=== PATIENT | female | born 1950 | race Caucasian/White ===

== ENCOUNTER → 2017-10-24 | Outpatient (CLI) | payer OTHER, MEDICARE ==
[~2017-10-24] MED LIST: ALEVE220 MG PO; ASPIRIN325 PO; AVAPRO75 MG PO; CYCLOBENZAPRINE5 MG PO; ELIQUIS2.5 MG PO; FLEXERIL PO; FLUCONAZOLE 10100 MG PO; GLUCOPHAGE XR750 MG PO; HYDROCHLOROTHIA25 M1 PO; HYDROCODON-ACE1 EAC7 PO; IBUPROFEN200 MG PO; IRBESARTAN300 MG PO; LIPITOR 20 MG T20 M1 PO; LOPRESSOR25 PO; MEDROLDOSEPACK PO; METAMUCIL1 EAC1 PO; METFORMIN HCL500 MG PO; NORCO 5-325 TA1 EACH PO; NOVOLOG100 UNIT/1 SUBQ; NYSTATIN15 GM TP; OXYCODONE HCL 55 MG PO; PAXIL10 MG PO
== END ==
LOC: M.RAD 09:35
DX: S89.92XA Unspecified injury of left lower leg, initial encounter (principal); M17.12 Unilateral primary osteoarthritis, left knee; G89.29 Other chronic pain; X58.XXXA Exposure to other specified factors, initial encounter; Y93.89 Activity, other specified; Y92.89 Other specified places as the place of occurrence of the external cause; Y99.8 Other external cause status

== ENCOUNTER → 2017-10-27 | Outpatient (CLI) | payer OTHER, MEDICARE | LOC: M.MRI 16:39 | DX: S89.92XA Unspecified injury of left lower leg, initial encounter (principal); M17.12 Unilateral primary osteoarthritis, left knee; G89.29 Other chronic pain; X58.XXXA Exposure to other specified factors, initial encounter; Y93.89 Activity, other specified; Y92.89 Other specified places as the place of occurrence of the external cause; Y99.8 Other external cause status ==

== ENCOUNTER 2017-12-25 08:10 | Inpatient (IN) | payer OTHER, MEDICARE ==
[2017-12-14 09:33] LABS: ABSOLUTE BASOPHILS 0.1 thou/uL (0.0-0.2); ABSOLUTE EOSINOPHILS 0.1 thou/uL (0.0-0.7); ABSOLUTE LYMPHOCYTES 1.4 thou/uL (0.8-5.3); ABSOLUTE MONOCYTES 0.4 thou/uL (0.0-1.2); ABSOLUTE NEUTROPHILS 6.7 thou/uL (1.6-8.1); BASOPHILS 1.2 %; HEMATOCRIT 40.8 % (37.0-47.0); HEMOGLOBIN 13.4 gm/dL (12.0-15.0); LYMPHOCYTES 16.5 %; MCH 29.8 pg (26.0-34.0); MCHC 32.9 g/dL (28.0-37.0); MCV 90.6 fL (80.0-100.0); MONOCYTES 4.6 %; MPV 10.5 fl. (7.2-11.1); NUCLEATED RBCS 0 /100WBC; PLATELET COUNT* 240 thou/uL (150-400); POLYS 76.7 %; RBC 4.51 mil/uL (4.20-5.00); RDW-CV 13.8 % (10.5-14.5); WBC 8.7 thou/uL (4.0-11.0)
[2017-12-14 09:39] LABS: ALBUMIN 3.6 g/dL (3.4-5.0); CALCIUM 9.2 mg/dL (8.5-10.1); CREATININE 0.9 mg/dL (0.6-1.3); POTASSIUM 3.9 mmol/L (3.5-5.1); TOTAL BILIRUBIN 0.5 mg/dL (<0.1-1.0); TOTAL PROTEIN 7.1 g/dL (6.4-8.2)
[2017-12-14 09:42] LABS: PROTIME 9.7 Seconds (9.20-11.50)
[2017-12-14 10:43] LABS: ESR (SEDRATE) 59 mm/hr (0-30)
--- NOTE | 2017-12-14 16:36 | EKG ---
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: : 1950 Requested By: Trevor Pak Order Number: [id number] Reading MD: Sameer Wright Measurements Intervals [place] Rate: 84 P: 25 CO: 166 QRS: -12 QRSD: 87 T: 19 QT: 367 QTc: 434 Interpretive Statements Sinus rhythm Consider left atrial enlargement Low voltage, precordial leads Left ventricular hypertrophy Anterior Q waves, possibly due to LVH Baseline wander in lead(s) V3,V4,V5 No previous ECG available for comparison Electronically Signed On 12-14-2017 16:35:58 CDT by Sameer Wright [email or web address] <ELECTRONICALLY SIGNED> By: Sameer Wright MD, [facility] 12/14/17 1635 7 Sameer Wright MD, [facility] /EPI
[2017-12-15 04:16] LABS: GLYCOHEMOGLOBIN (HGB A1C) 7.5 % (4.8-5.6)
[~2017-12-25] VITALS: Ht 165.1 cm; Wt 107.0 kg
[~2017-12-25 08:10] MED LIST changes: -ASPIRIN325 PO; -ELIQUIS2.5 MG PO; -METAMUCIL1 EAC1 PO; -NOVOLOG100 UNIT/1 SUBQ; -OXYCODONE HCL 55 MG PO
[2017-12-25 09:24] VITALS: BP 143/84
[2017-12-25 13:15] VITALS: BP 137/74
[2017-12-25 14:17] VITALS: BP 137/74
--- NOTE | 2017-12-25 14:44 | NUR ---
PT ARRIVED TO THE UNIT AT 1315. PT ORIENTED TO ROOM AND SERVICES. FOOD AND DRINK OFFERED. EXPECTATIONS EXPLAINED. PT AND DAUGHTER VERBALIZED UNDERSTANDING OF ADMISSION INSTRUCTIONS. PT C/O LEFT KNEE PAIN THAT HAS BEEN EFFECTIVELY CONTROLLED WITH A COMBINATION OF PO AND IV PAIN MEDS. VSS ON 2L VIA NC AND CAPNO MONITOR IN PLACE. PT CURRENTLY RESTING IN BED WITH EYES CLOSED, BREATHING EVEN AND UNLABORED AT A NORMAL RATE AND DEPTH.
[2017-12-25 20:30] VITALS: BP 122/63
[2017-12-26 00:16] VITALS: BP 125/69
[2017-12-26 04:02] VITALS: BP 115/68
[2017-12-26 04:14] LABS: HEMATOCRIT 32.8 % (37.0-47.0); HEMOGLOBIN 10.9 gm/dL (12.0-15.0)
--- NOTE | 2017-12-26 05:54 | NUR ---
PATIENT HAS SLEPT OFF AND ON DURING THE NIGHT. PAIN CONTROLLED WITH ORAL PAIN MEDICATION AND CHARTED. VSS ON 2L 02 VIA NASAL CANNULA AND CAPNO IN PLACE. DRESSING TO LEFT KNEE IS C/D/I, PATIENCE HOSE AND SCD'S IN PLACE. IV IN LEFT HAND-SL. PATIENT INSTRUCTED TO USE CALL LIGHT WHEN NEEDING ASSISTANCE. HOURLY ROUNDS MADE. WILL CONTINUE WITH PLAN OF CARE AND NURSING TO MONITOR.
[2017-12-26 08:07] VITALS: BP 108/41
--- NOTE | 2017-12-26 09:08 | NUR ---
RECIEVED O.T. EVAL AND TX ORDER. WILL DEFER TO P.T. AND NURSING AT THIS TIME. PLEASE ORDER FURTHER O.T. SERVICES IF NEEDED.
--- NOTE | 2017-12-26 15:00 | NUR ---
PT.SLEEPING. DAUGHTER,ENRIQUE,AT BEDSIDE. SHE SAID HER MOM JUST RECEIVED SOME MORIPHINE IV, SHE WAS HURTING SO BAD. PT.LIVES ALONE. DAUGHTER PLAINNING ON STATYING SEVERAL NIGHTS WITH HER. DAUGHTER SAID SH EIS GOING TO CALL HER BROTHER TO STAY DURING THE DAYTIME FOR A FEW DAYS. PT.HAS A WALKER AT HOME.WOULD LIKE TO HAVE HOME HEALTH FIRST. SHE WOULD LIKE [facility]. CM WILL CONTACT [facility] AND MAKE REFERRAL. SHE IS NORMALLY INDEPENDENT. 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 CM WILL FOLLOW.
[2017-12-26 16:16] VITALS: BP 95/40
[2017-12-26 17:23] VITALS: BP 95/40
--- NOTE | 2017-12-26 18:56 | NUR ---
ATTEMPTS TO MANAGE PT PAIN WITH ALTERNATING PAIN MEDS. PT REPORTS SIGNIFICANT PAIN. PT KNEE REPOSITIONED MANY TIMES AND PT ENCOURAGED TO KEEP KNEE STRAIGHT AND NOT TURNED OUT OR TWISTED IN BED. PT ALSO ENCOURAGED TO SIT IN CHAIR AND PT REFUSED. ICE TO KNEE. PT UP WITH MIN ASSIST WITH GAIT BELT AND WALKER. PT ABLE TO MAKE NEEDS KNOWN, CALL LIGHT IN REACH
[2017-12-26 20:50] VITALS: BP 121/56
[2017-12-27 00:59] VITALS: BP 91/34
[2017-12-27 04:36] LABS: HEMATOCRIT 28.7 % (37.0-47.0); HEMOGLOBIN 9.7 gm/dL (12.0-15.0)
[2017-12-27 04:39] VITALS: BP 120/70
--- NOTE | 2017-12-27 05:07 | NUR ---
PATIENT REMAINS ALERT AND ORIENTED THROUGHOUT SHIFT. VITAL SIGNS STABLE ON ROOM AIR. IV PATENT AND SALINE LOCKED IN THE LEFT FOREARM. TRANSFERRING WITH ASSIST X2 TO THE BEDSIDE COMMODE. ICE PACKS IN PLACE FOR PAIN. PAIN MANAGED WITH PO MEDICATION PER ORDERS. DENIES NAUSEA. REPOSITIONING SELF WITH ASSIST AT TIMES. HOURLY ROUNDING COMPLETE. FALL PRECAUTIONS IN PLACE. CALL LIGHT WITHIN REACH. NURSING WILL CONTINUE TO MONITOR.
[2017-12-27 09:26] VITALS: BP 115/67
--- NOTE | 2017-12-27 16:41 | NUR ---
P.T.RECOMMENDED NO DISCHARGE FOR PT. TODAY DUE TO POOR PAIN CONTROL AND MININAL AMBULATION DUE TO PAIN AND FATIGUE. [place]EN SNOW CM CHECK SNF BENEFITS FOR PT. ONLY SKILLED FACILITY IS [facility] IN [place], [place]. THIS IS A TIER ONE FACILITY. ANY OTHER SNF WOULD BE UNDER THE [facility] NETWORK AND ONLY COVERED AT 65%. WILL DISCUSS WITH PT.IN AM. NOTIFIED .
--- NOTE | 2017-12-27 17:42 | NUR ---
ASSUMED CARE PATIENT AFTER MORNING REPORT. ALERT AND ORIENTED X4. ASSESSMENT COMPLETED AND CHARTED. VSS ON ROOM AIR. PATIENT HAS HAD NO COMPLAINTS OF SOA THIS SHIFT. PATIENTS NAUSEA AND PAIN HAVE BEEN MANAGED WITH MEDICATION AND ICE APPLICATION CHIEF COMPLAINTS ARE OF KNEE AND HIP PAIN. MANY ATTEMPTS HAVE BEEN MADE TO REPOSITION OR USE WEDGES AND PILLOWS TO MAKE PATIENT MORE COMFORTABLE BUT PATIENT REFUSES THESE TECHNIQUES. PATIENT SPENT MOST OF THE DAY IN THE CHAIR AND WORKED WITH THERAPY THIS AFTERNOON. WILL NEED SKILLED PLACEMENT BEFORE DISCHARGE. HOURLY ROUNDS MAINTAINED, CALL LIGHT IS WITHIN REACH, NURSING WILL CONTINUE TO MONITOR.
[2017-12-27 21:00] VITALS: BP 107/46
[2017-12-27 23:51] VITALS: BP 95/46
[2017-12-28 04:00] VITALS: BP 100/49
--- NOTE | 2017-12-28 05:11 | NUR ---
PATIENT REMAINS ALERT AND ORIENTED X4 THROUGHOUT SHIFT WITH PERIODS OF CONFUSION. VITAL SIGNS STABLE ON ROOM AIR. IV PATENT IN THE LEFT FOREARM SALINE LOCKED. REPOSITIONING SELF IN BED. ICE PACKS IN PLACE TO HELP WITH PAIN. REPOSITIONING SELF IN BED AND CALLING FOR ASSISTANCE WHEN NEEDING HELP. PAIN MANAGED WTIH PO PAIN MEDICATION PER ORDERS. DENIES NAUSEA. FALL PRECAUTIONS IN PLACE. BED ALARM IN PLACE. CALL LIGHT WITHIN REACH. NURSING WILL CONTINUE TO MONITOR.
[2017-12-28 08:04] VITALS: BP 97/50
[2017-12-28 08:05] VITALS: BP 97/50
--- NOTE | 2017-12-28 14:00 | NUR ---
SPOKE WITH PT.ABOUT DISCHARGE PLANNING. SHE WAS HOLDING HER HEAD IN HER HANDS. SHE SAID SHE WAS HAVING ALOT OF BACK AND BUTTOCK PAIN. SHE FELL ABOUT A YEAR AGO AND HAS HAD PAIN EVER SINCE. SHE SAID IT IS WORSE SINCE SURGERY. EXPLAINED ONLY SNF SHE HAS 100% COVERAGE AT FOR HER INSURANCE. IS [facility]. SHE SAID I'LL GO WHEREVER YOU HAVE TO SEND ME. EXPLAINED I WOULD NEED TO MAKE REFERRAL AND THEN THEY WOULD NEED TO GET INSURANCE AUTHORIZATION. UNABLE TO SPEAK WITH ADMSSIONS AT [facility] BUT FAXED REFERRAL.
--- NOTE | 2017-12-28 16:45 | NUR ---
SW received call from [facility] requesting SW to call number on back of insurance card and choose option 3. SW called and manufacturer's service representative said that facility calls for authorization and faxes referral to fax number provided and SW called [facility] back and explained information for referral and they said that they were told CM was to call to make sure all benefits for pt. LEONOR explained again that insurance told SW that facility attains auth just as in any other referral process. Admissions at [facility] said that they would accept pt tomorrow but still needed to confirm and web operations administrator will call SW back in the morning. SW to continue to follow. LEONOR discussed with pt that pt will most likely dc to [facility] tomorrow. Pt understanding and okay with plan.
[2017-12-28 19:45] VITALS: BP 101/53
--- NOTE | 2017-12-28 19:51 | NUR ---
ASSUMED CARES OF PT AT 0700. PT IN BEDSIDE RECLINER CHAIR WITH CHAIR ALARM IN PLACE AND ACTIVE. CALL BUTTON AND PERSONAL ITEMS IN PT REACH. PT A&O X4, LUNGS CLEAR TO DIMINISHED PER AUSCULTATION. HR OFTEN TACHYCARDIC 100-102. BLOOD PRESSURES SOFT 97/50, 95/53, ASYMPTOMATIC. AFEBRILE, PERRLA, LEFT KNEE SURGICAL SITE DRESSING C/D/I. PT REFUSING MANY CARES (PT, OT, MEDS, BATH). DOES NOT WANT TO GO BACK TO BED BUT C/O PAIN IN BUTTOCKS, WAFFLE CUSHION AND HEATING PAD ORDERED. PT UP 1-2 ASSIST WALKER/GB. PT REFUSES SCD'S THIS SHIFT. LEFT FA IV PATENT TO FLUSH, SALINE LOCKED, NO S/S OF INFECTION. HOURLY ROUNDING AND ACCU CHECKS COMPLETED THIS SHIFT. PT POST OP DAY 3, DECEMBER D/C TOMORROW TO REHAB/SNF. ENCOURAGED AND EDUCATED TO USE INCENTIVE SPIROMETER EVERY COMMERCIAL OR AT LEAST 10X PER HOUR, PT STATES SHE CAN NOT DO THAT MUCH, TOO PAINFUL. PT OFTEN ANXIOUS. PT STATES SHE IS SOA WHEN PHYSICAL THERAPY COMES TO WORK WITH HER, BUT O2 STATS ARE WNL AND LUNG SOUNDS CLEAR TO DIMINISHED, COLOR APPROPRIATE TO RACE, CAP REFILL <3 SEC. PT REFUSING PAIN MEDS AND PAIN PATCH, PT STATES THEY DON'T WORK AND MAKE HER FEEL BAD. HOURLY ROUNDING AND ACCU CHECKS COMPLETED THIS SHIFT.
[2017-12-28] MEDS ORDERED: ELIQUIS2.5 MG PO (20:56)
[2017-12-28] MEDS ORDERED: OXYCODONE HCL 55 MG PO (21:02)
[2017-12-28] MEDS ORDERED: METAMUCIL1 EAC1 PO (21:06)
[2017-12-28 21:07] VITALS: BP 95/40
[2017-12-28 21:10] VITALS: BP 95/40
[2017-12-29 00:05] VITALS: BP 111/46
[2017-12-29 03:26] VITALS: BP 103/51
--- NOTE | 2017-12-29 03:51 | NUR ---
ASSUMED CARE OF PT AT 1900. PT IS ALERT AND ORIENTED. VSS. PERRLA. PT REPORTS SEVERE PAIN IN HER LEFT KNEE. PT REFUSES ANY PAIN MEDS. PT ALSO HAS NOT HAD A BOWEL MOVEMENT IN MULTIPLE DAYS. PT REFUSES MG CITRATE. PT IS UP SITTING IN HER CHAIR AT THIS TIME. GAIT IS VERY UNSTEADY.
[2017-12-29 07:50] VITALS: BP 105/84
[2017-12-29 14:26] LABS: HEMATOCRIT 28.1 % (37.0-47.0); HEMOGLOBIN 9.5 gm/dL (12.0-15.0); MCH 30.7 pg (26.0-34.0); MCHC 33.7 g/dL (28.0-37.0); MCV 91.1 fL (80.0-100.0); MPV 9.7 fl. (7.2-11.1); RBC 3.08 mil/uL (4.20-5.00); RDW-CV 13.9 % (10.5-14.5); WBC 10.7 thou/uL (4.0-11.0)
[2017-12-29 14:40] LABS: CALCIUM 8.1 mg/dL (8.5-10.1); CREATININE 2.4 mg/dL (0.6-1.3); POTASSIUM 4.6 mmol/L (3.5-5.1)
--- NOTE | 2017-12-29 16:55 | NUR ---
LEONOR followed up with pt dc planning for possible SNF for today. An order to dc to SNF was needed but not completed due to Dr Roger concern for pt constipation and pt to have a BM prior to approval for dc. LEONOR called and spoke with admissions at [facility] [phone] (Damaris and Yesenia) who said that they could accept pt tomorrow but that they do not have transportation. LEONOR spoke with pt dtr [phone] and she said that she could provide pt ride and works until 1 pm so she would be at the hospital shortly after 1 pm. Pt dtr asked about possibility of [facility], LEONOR spoke with Yarely in admissions who stated that at the very least, pt would be responsible for $333 per day and that she wouldn't be able to receive auth over the weekend. If medically cleared to dc, [facility] needs final orders and med list faxed to fax [phone] and nurse report called to [phone].
--- NOTE | 2017-12-29 19:05 | NUR ---
PT HAD ONE DOSE OF PAIN MEDICATIONS THIS SHIFT AFTER A LOT OF RELUCTANCE. PT DID NOT WANT TO TAKE PAIN MEDICATION DUE TO THE CONSTIPATING EFFECTS OF NARCOTICS. PT GIVEN A SUPPOSITORY THIS SHIFT WITH NO SUCCESS OF BM. PT LLE IS RED, SWOLLEN, AND WARM THIS SHIFT AND PATIENCE DEJESUS WERE TAKEN OFF BY OT EARLIER IN THE SHIFT. DR FRANCOIS NOTIFIED AND HE GAVE A TELEPHONE ORDER FOR VENOUS DOPPLER WHICH HE LATER CONFIRMED HE WANTED EVEN THOUGH SHE HAD THIS DONE MONDAY BUT WAS NEGATIVE. PT DAUGHTER STATED THAT HER LEFT ANKLE DOES LOOK MUCH MORE RED AND SWOLLEN THAN YESTERDAY. CALLED [facility] REGARDING THE VENOUS DOPPLER AND THEY WERE TOLD THE PT NEEDS TO HAVE THE DOPPLER TONIGHT AND NOT FOR TOMORROW IN THE AM. WILL PASS OFF TO NOC SHIFT
[2017-12-29 20:00] VITALS: BP 114/59
[2017-12-30 00:30] VITALS: BP 117/43
[2017-12-30 03:53] LABS: HEMATOCRIT 25.7 % (37.0-47.0); HEMOGLOBIN 8.7 gm/dL (12.0-15.0); MCH 30.3 pg (26.0-34.0); MCHC 33.7 g/dL (28.0-37.0); MCV 89.8 fL (80.0-100.0); MPV 9.9 fl. (7.2-11.1); RBC 2.86 mil/uL (4.20-5.00); RDW-CV 13.7 % (10.5-14.5); WBC 7.5 thou/uL (4.0-11.0)
[2017-12-30 04:05] LABS: CALCIUM 7.7 mg/dL (8.5-10.1); CREATININE 1.9 mg/dL (0.6-1.3); POTASSIUM 4.1 mmol/L (3.5-5.1)
[2017-12-30 04:56] VITALS: BP 100/43
--- NOTE | 2017-12-30 05:37 | NUR ---
ASSUMED PT CARE AT 1930, PT IS A&OX4, PT C/O PAIN THROUGHOUT THE SHIFT. PRN PAIN MEDICATIONS GIVEN PER OCT. PT HAD A SMALL BM THIS SHIFT. PT IS UP TO THE BSC WITH ONE. PT HAS A LARGE BRUISE TO HER LEFT LEG. PT HAS DRESSING TO LEFT KNEE CLEAN DRY AND INTACT. BED IN LOW POSITION, CALL LIGHT IN REACH, BED ALARM ON, YELLOW ARM BAND AND SOCKS IN PLACE. HOURLY ROUNDING COMPLETED FOR PT SAFETY.
[2017-12-30 08:00] VITALS: BP 120/71
--- NOTE | 2017-12-30 10:27 | NUR ---
Discussed disposition with Pt, Pt informed that she did have BM last evening. Pt should be ready to dc today, waiting for Dr to arrive and write dc orders. Pt to dc to [facility] p:[phone], f:[phone], dc orders will need to be faxed once available. Chart will need to be copied. Dtr to transport.
[2017-12-30 16:00] VITALS: BP 92/39
[2017-12-30 21:10] VITALS: BP 123/48
--- NOTE | 2017-12-30 21:15 | NUR ---
I ASSUMED CARE OF THE PATIENT AT 0700. SHE IS ALERT AND ORIENTED X4 WITH A FLAT AFFECT. BED IS IN THE LOW LOCKED POSITION AND CALL LIGHT IS IN REACH. BED/CHAIR ALARM IN USE. HOURLY ROUNDING WAS COMPLETED AND PATIENT NEEDS ARE MET. PAIN IS MANAGED WITH PRN PAIN MEDS. SHE WAS UP TO THE CHAIR AND PARTICIPATED IN THERAPY TODAY. IV WENT BAD AND I WAS UNABLE TO RESTART A LINE. NIGHT NURSE WILL ATTEMPT BEFORE CALLING A ENGRAVER LETTER. BLOOD SUGAR WAS MAINTAINED. SHE HAD 2 LARGE BOWEL MOVEMENTS TODAY. WILL CONTINUE TO MONITOR.
[2017-12-31 03:30] VITALS: BP 118/44
[2017-12-31 04:11] LABS: HEMATOCRIT 24.9 % (37.0-47.0); HEMOGLOBIN 8.2 gm/dL (12.0-15.0); MCH 30.1 pg (26.0-34.0); MCV 91.1 fL (80.0-100.0); MPV 9.6 fl. (7.2-11.1); RBC 2.73 mil/uL (4.20-5.00); RDW-CV 13.6 % (10.5-14.5); WBC 5.6 thou/uL (4.0-11.0)
[2017-12-31 04:26] LABS: URINE BILIRUBIN NEGATIVE (Negative); URINE BLOOD NEGATIVE (Negative); URINE CLARITY CLEAR; URINE COLOR YELLOW; URINE GLUCOSE-RANDOM NEGATIVE (Negative); URINE KETONES NEGATIVE (Negative); URINE LEUKOCYTES-REFLEX NEGATIVE (Negative); URINE NITRITE-REFLEX NEGATIVE (Negative); URINE PROTEIN NEGATIVE (Negative); URINE SPECIFIC GRAVITY <= 1.005 (1.005-1.030); URINE UROBILINOGEN 0.2 E.U./dl (0.2-1.0)
[2017-12-31 04:33] LABS: CREATININE 1.2 mg/dL (0.6-1.3); MAGNESIUM 2.5 mg/dL (1.8-2.4)
--- NOTE | 2017-12-31 04:44 | NUR ---
PATIENT HAS REMAINED ALERT AND ORIENTED X 4 THROUGHOUT THE SHIFT, FUSSY AND AT TIMES TEARFUL. RESTING AT INTERVALS ON HOURLY ROUNDS. UP TO BSC WITH ASSIST OF ONE. CUEING FOR SAFE TECHNIQUE. DRESSING LEFT KNEE CLEAN AND DRY. LLE REMAINS BRUISED AND SWOLLEN. ATTEMPTED TO PROVIDE SCD'S TONIGHT. PATIENT DID ALLOW THIS NURSE TO APPLY THEM, BUT, TOOK THEM OFF WITHIN 2 HOURS OF BEDTIME. LEFT HIP FROM [place] REPORTEDLY MORE PAIN TONIGHT THAN KNEE. MEDICATED X 3 FOR PAIN. VITAL SIGNS STABLE. URINE FOR UA TO LAB. NPO AT 0200 FOR PENDING RENAL ULTRASOUND. CONTINUE TO MONITOR.
[2017-12-31 08:23] VITALS: BP 122/64
[2017-12-31] MEDS ORDERED: NOVOLOG100 UNIT/1 SUBQ (15:57)
[2017-12-31 15:58] VITALS: BP 95/40
[2017-12-31] MEDS ORDERED: ASPIRIN325 PO (16:05)
--- NOTE | 2017-12-31 16:30 | NUR ---
THIS NURSE HAS BEEN IN CONTACT WITH PATIENTS DAUGHTER ENRIQUE REGARDING DISCHARGE TO [facility]. [facility] STATES SHE WILL TRANSPORT PATIENT AT 1700 AFTER WORK VIA PRIVATE VEHICLE. CALLED [facility] TO INFORM THEM OF DC ORDERS. FAXED ORDERS TO NUMBER PROVIDED. PATIENT THEN HAD ADDITIONAL FAMILY MEMBERS VISIT THIS AFTERNOON WHO WITHOUT EVEN SPEAKING WITH NURSE FIRST BECAME IRRATE AT NURSES STATION REGARDING PATIENT BEING TRANSPORTED VIA PRIVATE VEHICLE. INFORMED FAMILY MEMBER THAT I HAD SPOKE WITH ENRIQUE (PATIENTS DAUGHTER) 3 TIMES TODAY REGARDING PLAN, AND IF THE PLAN HAD CHANGED SINCE I LAST SPOKE TO HER I WAS NOT AWARE. THE PATIENT ALSO TOLD THE FAMILY THAT SHE HAD NOT BEEN OUT OF BED, HAD ANY FOOD, OR BEEN TO THE BATHROOM THIS SHIFT. POLITELY INFORMED THE FAMILY THAT SIMILAR ACCUSATIONS HAD BEEN MADE OVER THE PAST FEW DAYS, AND THAT I HAD CLARIFIED WITH [facility] THAT THESE WERE NOT TRUE, AND [facility] STATED SHE HAD BEEN HERE WITH PATIENT AND WITNESSED THE BEHAVIOR. INFORMED THE FAMILY THAT THE PATIENT HAD BEEN TAKEN CARE OF TODAY, BUT REFUSED 2/3 MEALS, AND ORIGINALLY TRIED TO REFUSE THERAPY BUT WITH MUCH ENCOURAGEMENT PATIENT PARTICIPATED WITH THERAPY. PATIENT ALSO HAD JUST YELLED AT NURSES STATING SHE DID NOT WANT HER FEET ELEVATED THAT IT WAS UNCOMFORTABLE AND SO NURSING ADJUSTED HER LEGS FOR COMFORT, AND THEN THE PATIENT TOLD HER FAMILY WE REFUSED TO ELEVATE HER LEGS. FAMILY APOLOGIZED STATING THEY DID NOT KNOW SHE WAS BEHAVING THIS WAY. DAUGHTER (ENRIQUE) GOT OFF WORK EARLY TO ASSIST WITH PATIENT.
--- NOTE | 2017-12-31 17:00 | NUR ---
FAMILY REQUESTING TRANSPORT BE CHANGED TO [facility]. CALLED [facility] AND THEY WILL PICK PATIENT UP BETWEEN 1830 AND 1900. VERIFIED THIS WAS OK WITH NURSING KITCHEN AND BATH DESIGNER DUE TO COST. FAMILY AWARE OF TRANSPORTATION PLANS. IV REMOVED. REPORT CALLED. CHART COPIED.
--- NOTE | 2017-12-31 18:43 | NUR ---
PATIENT TANSFERRED TO [facility] AT THIS TIME. IV REMOVED. REPORT CALLED TO [facility]. COPY OF CHART SENT. TRANSPORTED [facility]IA [facility].
--- NOTE | 2018-01-17 06:50 | OP ---
[address] [address] OPERATIVE REPORT Name: ALEX DIAL Room: [address]#: [id number] Admission: 12/25/17 Attend Phys: Marleny Raines Discharge: 12/31/17 Date of : 50 Report #: [id number] THIS REPORT FOR: //name// CC: Trevor Chapin DICTATED BY: Aric Caicedo DO DATE OF SERVICE: 12/25/2017 PREOPERATIVE DIAGNOSIS: Left knee degenerative joint disease. POSTOPERATIVE DIAGNOSIS: Left knee degenerative joint disease. SURGERY: Left total knee arthroplasty utilizing Biomet Vanguard total knee size 71 tibial bearing, a size 65 CR left femur, size 12 anterior stabilized tibial polyethylene and Palacos bone cement. PREOPERATIVE ANTIBIOTICS: 2 grams Ancef. ESTIMATED BLOOD LOSS: 150 mL. ANESTHESIA: General with adductor canal block. COMPLICATIONS: None. SPECIMENS: None. CONDITION: The patient is stable to PACU. INDICATIONS FOR PROCEDURE: This 67-year-old female has been dealing with left knee degenerative joint disease, has failed with conservative treatment, has had significant degenerative changes and loss of range of motion. DESCRIPTION OF PROCEDURE: Once a written and verbal consent was obtained, the patient was taken from the preoperative holding area to the operating suite, given the benefit of general anesthesia and the left lower extremity was prepared for surgery with well-padded tourniquet sterilely prepped and draped in legal office administrator manner. Timeout was performed to verify the correct operative site, location and procedure. A standard midline incision was made and a medial parapatellar arthrotomy was performed. The knee was then flexed with the patella everted. The medial and lateral menisci were removed and our bone cuts were made initially, started by taking an extra 2 mm off the distal femur as well as an extra 2 mm on the tibial cut. The patient was found to be tight medially and a slight medial release was performed. Next, [place] [address] OPERATIVE REPORT Name: ALEX DIAL Room: [address] IN [facility].#: [id number] Admission: 12/25/17 Attend Phys: Marleny Raines Discharge: 12/31/17 Date of : 50 Report #: [id number] sized using the sizing guide to a size 65. Our distal femur was cut using the 4 in 1 captured block as well as the posterior osteophytes were removed. Next, tibia was cut and measured to be a size 71. All osteophytes were removed and soft tissue was removed inside the capsule. Menisci were completely removed. The knee was thoroughly irrigated. Trial components were placed and were found to have good alignment and balance, and the patella was found to be in good smooth surface and it was decided to not resurface the patella. Trial components were removed. A tibial base plate was reamed and trial fins were impacted. Knee was thoroughly irrigated. Final components were cemented in place using one unit of Palacos cement. Final components were impacted in place. Size 12 polyethylene bearing was found to be appropriately balanced and cement was allowed to harden. Vancomycin powder was placed intracapsular and subcutaneously. The capsule was closed using #2 Stratafix as well as #1 Vicryl in simple interrupted fashion. Skin was closed using a 2-0 Monocryl in simple interrupted fashion as well as a running Stratafix and surgical glue. The patient was awakened and taken to PACU in stable condition. <ELECTRONICALLY SIGNED> By: Renny Fraser DO 01/17/18 0650 1219 [id number] Pak DO /meggan
== END 2017-12-31 18:45 | DRG 470 ==
LOC: M.PRE 08:10 → M.ORTHSURG 08:40 → M.TBA 08:40 → M.PRE 09:53 → M.ORTHSURG 13:13
PROVIDERS: Family Medicine; Orthopaedic Surgery; ADMIT Internal Medicine
PROC: 0SRD0J9 Replacement of Left Knee Joint with Synthetic Substitute, Cemented, Open Approach (ICD-10-PCS; principal; 2017-12-25)
DX: M17.12 Unilateral primary osteoarthritis, left knee (principal); D62 Acute posthemorrhagic anemia; M79.7 Fibromyalgia; G89.18 Other acute postprocedural pain; K59.00 Constipation, unspecified; E11.22 Type 2 diabetes mellitus with diabetic chronic kidney disease; I12.9 Hypertensive chronic kidney disease with stage 1 through stage 4 chronic kidney disease, or unspecified chronic kidney disease; N18.3 Chronic kidney disease, stage 3 (moderate); E66.9 Obesity, unspecified; E78.5 Hyperlipidemia, unspecified; Z79.84 Long term (current) use of oral hypoglycemic drugs; Z79.899 Other long term (current) drug therapy; Z68.39 Body mass index [BMI] 39.0-39.9, adult; Z90.49 Acquired absence of other specified parts of digestive tract; Z90.710 Acquired absence of both cervix and uterus; Z88.2 Allergy status to sulfonamides; Z88.8 Allergy status to other drugs, medicaments and biological substances

== ENCOUNTER → 2018-04-20 | Outpatient (CLI) | payer OTHER, MEDICARE ==
[~2018-04-20] MED LIST changes: +ASPIRIN325 PO; +ELIQUIS2.5 MG PO; +METAMUCIL1 EAC1 PO; +NOVOLOG100 UNIT/1 SUBQ; +OXYCODONE HCL 55 MG PO
[2018-04-20 09:02] LABS: ABSOLUTE EOSINOPHILS 0.2 thou/uL (0.0-0.7); ABSOLUTE MONOCYTES 0.3 thou/uL (0.0-1.2); ABSOLUTE NEUTROPHILS 4.2 thou/uL (1.6-8.1); BASOPHILS 0.8 %; EOSINOPHILS 2.8 %; HEMOGLOBIN 12.8 gm/dL (12.0-15.0); LYMPHOCYTES 17.4 %; MCH 28.4 pg (26.0-34.0); MCHC 32.9 g/dL (28.0-37.0); MCV 86.4 fL (80.0-100.0); MONOCYTES 5.6 %; MPV 10.3 fl. (7.2-11.1); NUCLEATED RBCS 0 /100WBC; PLATELET COUNT* 232 thou/uL (150-400); POLYS 73.4 %; RBC 4.51 mil/uL (4.20-5.00); WBC 5.7 thou/uL (4.0-11.0)
[2018-04-20 09:20] LABS: ALBUMIN 3.6 g/dL (3.4-5.0); ALKALINE PHOSPHATASE 121 U/L (46-116); ANION GAP 8 mmol/L (7-16); BUN 12 mg/dL (7-18); CHLORIDE 101 mmol/L (98-107); CHOLESTEROL 199 mg/dL (<200); CO2 28 mmol/L (21-32); CREATININE 0.8 mg/dL (0.6-1.3); GLUCOSE 156 mg/dL (70-99); HDL CHOLESTEROL 40 mg/dL (>40); LDL CHOLESTEROL 127 mg/dL (<100); POTASSIUM 3.9 mmol/L (3.5-5.1); SGOT 24 U/L (15-37); SGPT 33 U/L (30-65); SODIUM 137 mmol/L (136-145); TOTAL BILIRUBIN 0.3 mg/dL (<0.1-1.0); TOTAL PROTEIN 7.1 g/dL (6.4-8.2); TRIGLYCERIDE 162 mg/dL (<150); VLDL 32 mg/dL (<40)
[2018-04-20 09:21] LABS: SERUM ASSESSMENT Clear
[2018-04-21 02:07] LABS: GLYCOHEMOGLOBIN (HGB A1C) 7.2 % (4.8-5.6)
== END ==
LOC: M.LAB 08:41
PROVIDERS: Family Medicine
DX: E11.9 Type 2 diabetes mellitus without complications (principal); I10 Essential (primary) hypertension; E78.2 Mixed hyperlipidemia; B37.9 Candidiasis, unspecified; L30.9 Dermatitis, unspecified

== ENCOUNTER → 2019-01-25 | Outpatient (CLI) | payer OTHER, MEDICARE | LOC: M.ULTRA 07:47 | DX: R22.2 Localized swelling, mass and lump, trunk (principal) ==

== ENCOUNTER → 2019-03-07 | Day surgery (SDC) | payer OTHER, MEDICARE ==
[~2019-03-07] MED LIST changes: +ASPIR 8181 MG PO; +COZAAR 25 MG TA25 M1 PO; +LIPITOR10 MG PO; +TYLENOL325 MG PO
--- NOTE | ~2019-03-07 | OP ---
[facility] [address] [place] [address] OPERATIVE REPORT Name: AMOR DIALTREVA ROWE Room: [facility]#: [id number] Admission: 03/07/19 Attend Phys: Jeison Garcia Discharge: Date of : 50 Report #: [id number] THIS REPORT FOR: //name// CC: Jeison Colmenares DATE OF SERVICE: 03/07/2019 PREOPERATIVE DIAGNOSIS: Right upper back lipoma, 10 x 9 cm. POSTOPERATIVE DIAGNOSIS: Right upper back lipoma, 10 x 9 cm. PROCEDURE: Excision of 10 x 9 cm right upper back lipoma. SURGEON: Jeison Garcia MD ANESTHESIA: General. ESTIMATED BLOOD LOSS: Minimal. SPECIMENS: Right upper back lipoma. DESCRIPTION OF PROCEDURE: After informed consent was obtained, the patient was brought to the operating room and placed supine. SCDs were placed and working, preoperative antibiotics were administered, general anesthesia was induced. The patient was placed in the left lateral decubitus position with all bony prominences protected with cushions and an axillary roll. The area was then prepped and draped in the usual sterile fashion. A 10 cm incision was made over the lipoma. Cautery dissection was made down through the subcutaneous tissue. This was well encapsulated. The mass was then fully excised. Skin was closed with 4-0 Monocryl in running subcuticular fashion. Incision was dressed with Steri-Strips and sterile gauze. Sterile dressings were applied. COMPLICATIONS: None. DISPOSITION: The patient was taken to recovery in satisfactory condition. By: 0821 [id number] Garcia MD /nt
[2019-03-07 06:50] LABS: HEMATOCRIT 38.7 % (37.0-47.0); HEMOGLOBIN 12.9 gm/dL (12.0-15.0); MCH 29.5 pg (26.0-34.0); MCHC 33.3 g/dL (28.0-37.0); MCV 88.6 fL (80.0-100.0); MPV 10.4 fl. (7.2-11.1); RBC 4.36 mil/uL (4.20-5.00); WBC 5.9 thou/uL (4.0-11.0)
[2019-03-07 06:53] LABS: CALCIUM 9.5 mg/dL (8.5-10.1)
--- NOTE | 2019-03-07 16:30 | EKG ---
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 : 1950 Requested By: Jeison Garcia Order Number: [id number] Reading MD: Galdino Schmitt Measurements Intervals [place] Rate: 73 P: 27 [place]: 168 QRS: -16 QRSD: 94 T: 3 QT: 393 QTc: 433 Interpretive Statements Sinus rhythm Low voltage, precordial leads Left ventricular hypertrophy, by ivoltage Compared to ECG 12/14/2017 09:28:45 Q waves no longer present Electronically Signed On 03-07-2019 16:30:16 CDT by Galdino Schmitt [email or web address] <ELECTRONICALLY SIGNED> By: Galdino Schmitt MD, [facility] 03/07/19 1630 0631 0631 Galdino Schmitt MD, [facility] /EPI
--- NOTE | 2019-03-08 18:06 | PATH ---
[facility] [address] [place] [address] PATHOLOGY RPT PROCEDURE Name: RADHA DIAL Room: [facility].#: [id number] Admission: 03/07/19 Date of : 50 Discharge: Report #: [id number] Path Case #: [id number] [facility] Accession Number: [id number] . 01 Material submitted: . back - RIGHT UPPER BACK LIPOMA. Modifiers: right, upper . 01 Clinical history: . Lipoma of right upper back. . 02 Diagnosis: Right upper back lipoma: - Lipoma. (DAMARI:jacek; 03/08/2019) MBR/03/08/2019 . 02 Electronically signed: . Benjamin Cevallos MD, Pathologist NPI- [id number] . 01 Gross description: . Received in formalin labeled "Luis, Radha, right upper back lipoma" is an encapsulated yellow-lópez lobulated soft tissue mass measuring 10.0 x 10.0 x 3.5 cm. The external surface is inked black. The specimen is sectioned to reveal a yellow-lópez homogenous cut surface without hemorrhage or necrosis. Cloth Shader sections are submitted in A1-A5, with two sections in each cassette. ([facility]; 03/07/2019) SYC/SYC . 02 Pathologist provided ICD-10: D17.1 . 02 CPT . 256434 Specimen Comment: A courtesy copy of this report has been sent to Specimen Comment: [phone], . Specimen Comment: Report sent to / DR FRYE Performed at: [address], [place] [id number] MD Thee Weiss MD Phone: [phone] Performed at: 02 [facility] [address], [place], [place] [id number] MD Benjamin Cevallos MD Phone: [phone]
== END | disposition home or self-care (01) ==
LOC: M.SUR 06:08
PROVIDERS: Surgery
DX: D17.1 Benign lipomatous neoplasm of skin and subcutaneous tissue of trunk (principal); M17.12 Unilateral primary osteoarthritis, left knee; I10 Essential (primary) hypertension; E78.00 Pure hypercholesterolemia, unspecified; E11.9 Type 2 diabetes mellitus without complications; E78.5 Hyperlipidemia, unspecified; M79.7 Fibromyalgia; Z88.2 Allergy status to sulfonamides; Z88.8 Allergy status to other drugs, medicaments and biological substances; Z79.82 Long term (current) use of aspirin; Z90.49 Acquired absence of other specified parts of digestive tract; Z79.899 Other long term (current) drug therapy; Z98.890 Other specified postprocedural states; Z90.710 Acquired absence of both cervix and uterus

== ENCOUNTER 2019-06-06 09:48 | Emergency (ER) | payer OTHER, MEDICARE ==
[~2019-06-06] VITALS: Ht 165.1 cm; Wt 106.6 kg
[2019-06-06 11:13] LABS: ABSOLUTE EOSINOPHILS 0.1 thou/uL (0.0-0.7); ABSOLUTE LYMPHOCYTES 1.1 thou/uL (0.8-5.3); ABSOLUTE MONOCYTES 0.4 thou/uL (0.0-1.2); ABSOLUTE NEUTROPHILS 5.2 thou/uL (1.6-8.1); BASOPHILS 0.4 %; EOSINOPHILS 1.6 %; HEMOGLOBIN 13.5 gm/dL (12.0-15.0); LYMPHOCYTES 15.7 %; MCH 30.3 pg (26.0-34.0); MCHC 33.9 g/dL (28.0-37.0); MCV 89.4 fL (80.0-100.0); MONOCYTES 5.5 %; MPV 10.7 fl. (7.2-11.1); NUCLEATED RBCS 0 /100WBC; PLATELET COUNT* 223 thou/uL (150-400); POLYS 76.8 %; RBC 4.47 mil/uL (4.20-5.00); RDW-CV 13.9 % (10.5-14.5); WBC 6.8 thou/uL (4.0-11.0)
[2019-06-06 11:22] LABS: CALCIUM 9.7 mg/dL (8.5-10.1); CREATININE 0.9 mg/dL (0.6-1.3); POTASSIUM 3.7 mmol/L (3.5-5.1)
[2019-06-06 11:26] LABS: INR 0.9; PROTIME 9.7 Seconds (9.20-11.50)
[2019-06-06 11:32] LABS: TOTAL BILIRUBIN 0.3 mg/dL (<0.1-1.0); TOTAL PROTEIN 7.5 g/dL (6.4-8.2)
[2019-06-06] MEDS ORDERED: MELOXICAM15 MG PO (13:43)
[2019-06-06] MEDS ORDERED: MEDROLDOSEPACK PO (13:43)
[2019-06-06 14:10] VITALS: BP 149/81
--- NOTE | 2019-06-06 14:33 | EKG ---
[place] [address] ELECTROCARDIOGRAM REPORT Name: ALEX DIAL Room: [facility]#: [id number] Admission: 06/06/19 Attend Phys: Discharge: 06/06/19 Date of : 50 Report #: [id number] THIS REPORT FOR: //name// [facility] ED Test Date: 2019-06-06 Test Time: 10:12:15 Pat Name: ALEX DIAL Department: Room: Gender: F County Judge: SEAN : 1950 Requested By: Pam Dnun Order Number: [id number] MD: Galdino Schmitt Measurements Intervals [place] Rate: 76 P: 19 MT: 162 QRS: -18 QRSD: 95 T: 1 QT: 394 QTc: 444 Interpretive Statements Sinus rhythm Low voltage, precordial leads Left ventricular hypertrophy Compared to ECG 03/07/2019 06:31:26 no significant changes noted Electronically Signed On 06-06-2019 14:33:40 CDT by Galdino Schmitt [email or web address] <ELECTRONICALLY SIGNED> By: Galdino Schmitt MD, [facility] 06/06/19 1433 1012 1012 Galdino Schmitt MD, [facility] /EPI
== END 2019-06-06 14:13 | disposition home or self-care (01) ==
LOC: M.ERS 09:48
PROVIDERS: Personal Emergency Response Attendant
DX: M94.0 Chondrocostal junction syndrome [Tietze] (principal); M79.10 Myalgia, unspecified site; I10 Essential (primary) hypertension; E11.9 Type 2 diabetes mellitus without complications; E78.00 Pure hypercholesterolemia, unspecified; Z90.49 Acquired absence of other specified parts of digestive tract; Z90.710 Acquired absence of both cervix and uterus; Z96.652 Presence of left artificial knee joint; Z88.2 Allergy status to sulfonamides; Z88.8 Allergy status to other drugs, medicaments and biological substances

== ENCOUNTER → 2019-10-23 | Outpatient (CLI) | payer OTHER, MEDICARE ==
[~2019-10-23] MED LIST changes: +MELOXICAM15 MG PO
[2019-10-23 07:50] LABS: ABSOLUTE EOSINOPHILS 0.1 thou/uL (0.0-0.7); ABSOLUTE LYMPHOCYTES 1.1 thou/uL (0.8-5.3); ABSOLUTE MONOCYTES 0.4 thou/uL (0.0-1.2); ABSOLUTE NEUTROPHILS 5.1 thou/uL (1.6-8.1); BASOPHILS 0.6 %; HEMATOCRIT 40.1 % (37.0-47.0); HEMOGLOBIN 13.5 gm/dL (12.0-15.0); MCH 30.1 pg (26.0-34.0); MCHC 33.5 g/dL (28.0-37.0); MCV 89.6 fL (80.0-100.0); MONOCYTES 5.4 %; MPV 10.3 fl. (7.2-11.1); NUCLEATED RBCS 0 /100WBC; PLATELET COUNT* 228 thou/uL (150-400); RBC 4.48 mil/uL (4.20-5.00); RDW-CV 13.7 % (10.5-14.5); WBC 6.7 thou/uL (4.0-11.0)
[2019-10-23 08:00] LABS: ALBUMIN 3.6 g/dL (3.4-5.0); ALKALINE PHOSPHATASE 103 U/L (46-116); ANION GAP 9 mmol/L (7-16); BUN 9 mg/dL (7-18); CALCIUM 8.9 mg/dL (8.5-10.1); CHLORIDE 103 mmol/L (98-107); CHOLESTEROL 144 mg/dL (<200); CO2 28 mmol/L (21-32); CREATININE 0.8 mg/dL (0.6-1.3); GLUCOSE 158 mg/dL (70-99); HDL CHOLESTEROL 44 mg/dL (>40); LDL CHOLESTEROL 78 mg/dL (<100); POTASSIUM 3.9 mmol/L (3.5-5.1); SGOT 27 U/L (15-37); SGPT 35 U/L (30-65); SODIUM 140 mmol/L (136-145); TC:HDL 3.3 Ratio (Not establshd); TOTAL BILIRUBIN 0.4 mg/dL (<0.1-1.0); TOTAL PROTEIN 7.1 g/dL (6.4-8.2); TRIGLYCERIDE 111 mg/dL (<150); VLDL 22 mg/dL (<40)
[2019-10-23 08:08] LABS: SERUM ASSESSMENT Clear
[2019-10-24 02:07] LABS: GLYCOHEMOGLOBIN (HGB A1C) 8.3 % (4.8-5.6)
== END ==
LOC: M.LAB 07:29
PROVIDERS: Family Medicine
DX: K21.9 Gastro-esophageal reflux disease without esophagitis (principal); I10 Essential (primary) hypertension; E11.9 Type 2 diabetes mellitus without complications; E78.2 Mixed hyperlipidemia

== ENCOUNTER → 2020-02-24 | Outpatient (CLI) | payer OTHER, MEDICARE ==
[2020-02-24 17:13] LABS: ABSOLUTE EOSINOPHILS 0.1 thou/uL (0.0-0.7); ABSOLUTE LYMPHOCYTES 1.6 thou/uL (0.8-5.3); ABSOLUTE MONOCYTES 0.3 thou/uL (0.0-1.2); ABSOLUTE NEUTROPHILS 6.6 thou/uL (1.6-8.1); BASOPHILS 0.5 %; HEMATOCRIT 40.1 % (37.0-47.0); HEMOGLOBIN 13.6 gm/dL (12.0-15.0); MCH 30.3 pg (26.0-34.0); MCV 89.2 fL (80.0-100.0); MPV 10.5 fl. (7.2-11.1); NUCLEATED RBCS 0 /100WBC; PLATELET COUNT* 234 thou/uL (150-400); POLYS 76.5 %; RBC 4.49 mil/uL (4.20-5.00); RDW-CV 13.8 % (10.5-14.5); WBC 8.6 thou/uL (4.0-11.0)
[2020-02-24 17:23] LABS: CALCIUM 9.6 mg/dL (8.5-10.1); CREATININE 0.9 mg/dL (0.6-1.3); POTASSIUM 3.7 mmol/L (3.5-5.1); TOTAL BILIRUBIN 0.5 mg/dL (<0.1-1.0); TOTAL PROTEIN 7.6 g/dL (6.4-8.2)
== END ==
LOC: M.LAB 16:56
PROVIDERS: ATTEND Family Medicine
DX: R10.13 Epigastric pain (principal); R10.84 Generalized abdominal pain; Z90.49 Acquired absence of other specified parts of digestive tract

== ENCOUNTER → 2020-02-25 | Outpatient (CLI) | payer OTHER | LOC: M.CT 08:56 | PROVIDERS: ATTEND Family Medicine | DX: K76.0 Fatty (change of) liver, not elsewhere classified (principal); M47.9 Spondylosis, unspecified; Z90.49 Acquired absence of other specified parts of digestive tract ==

== ENCOUNTER → 2020-03-23 | Outpatient (CLI) | payer OTHER | LOC: M.LAB 15:55 | PROVIDERS: ATTEND Internal Medicine Gastroenterology | DX: Z01.812 Encounter for preprocedural laboratory examination (principal); R10.13 Epigastric pain; E87.6 Hypokalemia; Z11.59 Encounter for screening for other viral diseases ==

== ENCOUNTER → 2020-05-29 | Outpatient (CLI) | payer OTHER ==
[2020-05-29 07:17] LABS: ABSOLUTE BASOPHILS 0.1 thou/uL (0.0-0.2); ABSOLUTE EOSINOPHILS 0.2 thou/uL (0.0-0.7); ABSOLUTE MONOCYTES 0.3 thou/uL (0.0-1.2); EOSINOPHILS 2.9 %; HEMATOCRIT 39.6 % (37.0-47.0); HEMOGLOBIN 13.4 gm/dL (12.0-15.0); LYMPHOCYTES 18.5 %; MCH 30.1 pg (26.0-34.0); MCV 88.6 fL (80.0-100.0); MONOCYTES 5.5 %; MPV 9.9 fl. (7.2-11.1); NUCLEATED RBCS 0 /100WBC; PLATELET COUNT* 201 thou/uL (150-400); POLYS 72.1 %; RBC 4.46 mil/uL (4.20-5.00); RDW-CV 13.7 % (10.5-14.5); WBC 5.5 thou/uL (4.0-11.0)
[2020-05-29 08:00] LABS: ALBUMIN 3.9 g/dL (3.4-5.0); ALKALINE PHOSPHATASE 107 U/L (46-116); ANION GAP 8 mmol/L (7-16); BUN 11 mg/dL (7-18); CALCIUM 9.3 mg/dL (8.5-10.1); CHLORIDE 101 mmol/L (98-107); CHOLESTEROL 321 mg/dL (<200); CO2 30 mmol/L (21-32); GLUCOSE 182 mg/dL (70-99); HDL CHOLESTEROL 47 mg/dL (>40); LDL CHOLESTEROL 246 mg/dL (<100); POTASSIUM 4.1 mmol/L (3.5-5.1); SGOT 21 U/L (15-37); SGPT 36 U/L (30-65); SODIUM 139 mmol/L (136-145); TC:HDL 6.8 Ratio (Not establshd); TOTAL BILIRUBIN 0.3 mg/dL (<0.1-1.0); TOTAL PROTEIN 7.2 g/dL (6.4-8.2); TRIGLYCERIDE 144 mg/dL (<150); VLDL 29 mg/dL (<40)
[2020-05-29 08:03] LABS: SERUM ASSESSMENT Clear
[2020-05-29 23:06] LABS: GLYCOHEMOGLOBIN (HGB A1C) 8.1 % (4.8-5.6)
== END ==
LOC: M.LAB 06:50
PROVIDERS: ATTEND Family Medicine
DX: E78.2 Mixed hyperlipidemia (principal); E11.9 Type 2 diabetes mellitus without complications; I10 Essential (primary) hypertension

== ENCOUNTER → 2020-11-13 | Outpatient (CLI) | payer OTHER ==
[2020-11-13 07:23] LABS: ABSOLUTE EOSINOPHILS 0.2 thou/uL (0.0-0.7); ABSOLUTE LYMPHOCYTES 1.1 thou/uL (0.8-5.3); ABSOLUTE MONOCYTES 0.4 thou/uL (0.0-1.2); ABSOLUTE NEUTROPHILS 5.3 thou/uL (1.6-8.1); BASOPHILS 0.7 %; EOSINOPHILS 2.3 %; HEMOGLOBIN 12.8 gm/dL (12.0-15.0); MCH 28.9 pg (26.0-34.0); MCHC 32.9 g/dL (28.0-37.0); MCV 87.9 fL (80.0-100.0); MONOCYTES 5.4 %; MPV 10.1 fl. (7.2-11.1); NUCLEATED RBCS 0 /100WBC; PLATELET COUNT* 214 thou/uL (150-400); POLYS 75.6 %; RBC 4.44 mil/uL (4.20-5.00); RDW-CV 13.1 % (10.5-14.5)
[2020-11-13 07:54] LABS: ALBUMIN 3.6 g/dL (3.4-5.0); ALKALINE PHOSPHATASE 99 U/L (46-116); ANION GAP 9 mmol/L (7-16); CALCIUM 9.1 mg/dL (8.5-10.1); CHLORIDE 104 mmol/L (98-107); CHOLESTEROL 145 mg/dL (<200); CO2 28 mmol/L (21-32); GLUCOSE 155 mg/dL (70-99); HDL CHOLESTEROL 41 mg/dL (>40); LDL CHOLESTEROL 73 mg/dL (<100); POTASSIUM 4.4 mmol/L (3.5-5.1); SGOT 15 U/L (15-37); SGPT 20 U/L (30-65); SODIUM 141 mmol/L (136-145); TC:HDL 3.5 Ratio (Not establshd); TOTAL BILIRUBIN 0.4 mg/dL (<0.1-1.0); TRIGLYCERIDE 155 mg/dL (<150); VLDL 31 mg/dL (<40)
[2020-11-13 08:04] LABS: BUN 15 mg/dL (7-18)
[2020-11-13 08:05] LABS: SERUM ASSESSMENT Clear
[2020-11-13 23:06] LABS: GLYCOHEMOGLOBIN (HGB A1C) 7.9 % (4.8-5.6)
== END ==
LOC: M.LAB 06:56
PROVIDERS: ATTEND Family Medicine
DX: E11.9 Type 2 diabetes mellitus without complications (principal); I10 Essential (primary) hypertension; E78.2 Mixed hyperlipidemia

== ENCOUNTER → 2021-07-05 | Outpatient (CLI) | payer OTHER, MEDICARE ==
[2021-07-05 07:35] LABS: ABSOLUTE BASOPHILS 0.1 thou/uL (0.0-0.2); ABSOLUTE EOSINOPHILS 0.1 thou/uL (0.0-0.7); ABSOLUTE LYMPHOCYTES 1.2 thou/uL (0.8-5.3); ABSOLUTE MONOCYTES 0.4 thou/uL (0.0-1.2); ABSOLUTE NEUTROPHILS 4.4 thou/uL (1.6-8.1); BASOPHILS 0.8 %; EOSINOPHILS 2.1 %; HEMATOCRIT 42.5 % (37.0-47.0); HEMOGLOBIN 14.1 gm/dL (12.0-15.0); LYMPHOCYTES 19.6 %; MCHC 33.1 g/dL (28.0-37.0); MCV 90.6 fL (80.0-100.0); MONOCYTES 6.1 %; MPV 9.5 fl. (7.2-11.1); NUCLEATED RBCS 0 /100WBC; PLATELET COUNT* 193 thou/uL (150-400); POLYS 71.4 %; RBC 4.69 mil/uL (4.20-5.00); RDW-CV 14.1 % (10.5-14.5); WBC 6.1 thou/uL (4.0-11.0)
[2021-07-05 07:48] LABS: ALBUMIN 3.7 g/dL (3.4-5.0); ALKALINE PHOSPHATASE 97 U/L (46-116); ANION GAP 9 mmol/L (7-16); BUN 13 mg/dL (7-18); CALCIUM 9.1 mg/dL (8.5-10.1); CHLORIDE 104 mmol/L (98-107); CO2 29 mmol/L (21-32); CREATININE 0.9 mg/dL (0.6-1.3); GLUCOSE 178 mg/dL (70-99); POTASSIUM 4.4 mmol/L (3.5-5.1); SGOT 16 U/L (15-37); SGPT 27 U/L (30-65); SODIUM 142 mmol/L (136-145); TOTAL BILIRUBIN 0.2 mg/dL (<0.1-1.0); TOTAL PROTEIN 7.3 g/dL (6.4-8.2)
[2021-07-05 08:08] LABS: CHOLESTEROL 160 mg/dL (<200); HDL CHOLESTEROL 52 mg/dL (>40); LDL CHOLESTEROL 82 mg/dL (<100); TC:HDL 3.1 Ratio (Not establshd); TRIGLYCERIDE 134 mg/dL (<150); VLDL 27 mg/dL (<40)
[2021-07-05 08:09] LABS: SERUM ASSESSMENT Clear
[2021-07-06 02:06] LABS: GLYCOHEMOGLOBIN (HGB A1C) 7.9 % (4.8-5.6)
== END ==
LOC: M.LAB 07:14
PROVIDERS: ATTEND Family Medicine
DX: E11.9 Type 2 diabetes mellitus without complications (principal); E78.2 Mixed hyperlipidemia; I10 Essential (primary) hypertension; K21.9 Gastro-esophageal reflux disease without esophagitis